=== PATIENT | male | born 1975 | race Caucasian/White ===

== ENCOUNTER 2022-06-01 07:02 | Outpatient (CLI) | payer OTHER, SELFPAY ==
--- NOTE | 2022-06-01 07:15 | MR_ITS ---
[facility] [address] [facility] [address] Phone:?[phone] Fax:?[phone] Referring Physician Information: Colin Mobley M.D. [address] [place] [place] [address] Phone:?[phone] Fax:?[phone] Patient:?Hawk Page D.O.B:?1975 Sex:?Male Phone:?[phone] [facility] MRN:?[id number] Exam Date:?06/01/2022 ? EXAM: MRI OF THE LUMBAR SPINE WITHOUT CONTRAST CLINICAL INFORMATION: Low back and bilateral leg pain. TECHNICAL INFORMATION: Sagittal fast spin-echo T2-weighted, T1-weighted, STIR as well as axial fast spin-echo T1 and T2-weighted images of the lumbar spine were obtained on a 1.5 [employer] MRI scanner.?SEDATION:?None.?CONTRAST:?None. INTERPRETATION: No comparison. Straightened lumbar lordosis. No acute fracture or spondylolysis. Conus is normal and terminates at L1. Imaged upper sacrum and paraspinal soft tissue structures are unremarkable save for incidental bilateral renal cysts. Disc desiccation and annular bulging are demonstrated at L4-5 and L3-4 with mild isolated annular bulging at L5-S1. Disc space narrowing is mild at L5-S1 and L4- 5. L5-S1: No central stenosis or traversing neural compression. Facets are unremarkable, but there is mild bilateral chronic foraminal narrowing. L4-5: Cranially extending, 3 to 4 mm right paracentral disc extrusion with moderate central stenosis, moderate bilateral subarticular recess narrowing and subarticular encroachment upon the traversing bilateral L5 nerve roots. Mild bilateral facet hypertrophy with mild to moderate bilateral chronic foraminal narrowing. L3-4: No central stenosis or traversing neural compression. Mild bilateral facet hypertrophy with patent foramina. L2-3 through T12-L1: Normal posterior disc margins and facets. Patent foramina. CONCLUSION: Multilevel degenerative lumbar spondylosis with the following notable findings: 1. Cranially extending, 3-4 and right paracentral L4-5 disc extrusion with moderate central stenosis and subarticular encroachment upon the traversing bilateral L5 nerve roots. 2. No acute fracture or spondylolysis. 3. Chronic mild bilateral L5-S1 and mild to moderate bilateral L4-5 foraminal narrowing without ganglionic compression. SC Electronically signed on 06/01/2022 1:54:00 PM by Reynaldo Cordova M.D.
--- OUTSIDE RECORDS SUMMARY | 2022-06-01 07:42 | XMS_ITS | Encounter Summary ---
:1975 Author Organization [facility] Address [address] [place] [address] Care Team Providers Name Role Phone Unavailable Primary Care Provider Unavailable Reason for Referral Outpatient (Routine) - Closed Specialty Diagnoses / Procedures Referred By Contact Refer red To Contact Neurology Steffanie Schmidt M.D ., M.P.H. [facility] [address] [place] [phone] Referral ID Status Reason Start Date Expiration Date Visits Requ ested Visits Authorized [id number] Closed 04/02/2021 04/02/2022 1 1 Reason for Visit Reason Comments Seizures yearly follow up Outpatient (Routine) - Closed Specialty Diagnoses / Procedures Referred By Contact Refer red To Contact Neurology Steffanie Schmidt M.D ., M.P.H. [facility] [address] [place] [phone] Referral ID Status Reason Start Date Expiration Date Visits Requ ested Visits Authorized [id number] Closed 12/20/2019 12/19/2020 1 1 Encounter Details Date Type Department Care Team Description 04/02/2021 Office Visit Department of Steffanie Schmidt, Seizure (H CC) (Primary Neurology in [place], M.P.H. Dx) [address] [phone] Social History Tobacco Use Types Packs/Day Years Used Date Smoking Tobacco: Former Cigarettes 0.5 15 Star raymundo: 08/26/2004 Smokeless Tobacco: Former Chew Qu it: 06/28/2009 Comments: occ. once a month Alcohol Use Standard Drinks/Week Comments Yes 0 (1 standard drink = 0.6 oz pure alcoho l) Alcohol Habits Answer Date Recorded How often do you have a drink containing alcohol? 2-4 times a month 03/31/2021 How many drinks containing alcohol do you have on a 3 or 4 03/31/2021 typical day when you are drinking? How often do you have six or more drinks on one Less than mo nthly 03/31/2021 occasion? Social Isolation Answer Date Recorded In a typical week, how many times do you talk on Twice a wee k 03/31/2021 the phone with family, friends, or neighbors? How often do you get together with friends or Once a week 03/31/2021 relatives? How often do you attend jain or restoration 1 to 4 times per year 03/31/2021 services? Do you belong to any clubs or organizations such Yes 03/31/2021 as jain groups, unions, fraternal or athletic groups, or school groups? How often do you attend meetings of the clubs or 1 to 4 time s per year 03/31/2021 organizations you belong to? Are you now , , , 03/31/2021 , never or living with a partner? Physical Activity Answer Date Recorded On average, how many days per week do you engage in moderate to 2 days 03/31/2021 strenuous exercise (like walking fast, running, jogging, dancing, swimming, biking, or other activities that cause a light or heavy sweat)? On average, how many minutes do you engage in exercise at th is 40 min 03/31/2021 level? Stress Answer Date Recorded Do you feel stress - tense, restless, nervous, or To some ex tent 03/31/2021 anxious, or unable to sleep at night because your mind is troubled all the time - these days? Financial Resource Strain Answer Date Recorded How hard is it for you to pay for the very basics like Not h rob at all 03/31/2021 food, housing, medical care, and heating? Food Insecurity Answer Date Recorded Within the past 12 months, you worried that your food would Never true 03/31/2021 run out before you got money to buy more. Within the past 12 months, the food you bought just didn't N ever true 03/31/2021 last and you didn't have money to get more. Transportation Needs Answer Date Recorded In the past 12 months, has lack of transportation kept you f rom No 03/31/2021 medical appointments or from getting medications? In the past 12 months, has lack of transportation kept you f rom No 03/31/2021 meetings, work, or getting things needed for daily living? Housing Stability Answer Date Recorded In the last 12 months, was there a time when you were not ab le No 03/31/2021 to pay the mortgage or rent on time? In the last 12 months, how many places have you lived? 1 03/31/2021 In the last 12 months, was there a time when you did not hav e a No 03/31/[address] or slept in a custodial (including now)? Education Answer Date Recorded What is the highest level of school you have Some college, n o degree 12/18/2019 completed or the highest degree you have received? Sex Assigned at Date Recorded Male 01/06/2018 10:28 AM CDT documented as of this encounter Last Filed Vital Signs Vital Sign Reading Time Taken Comments Blood Pressure 116/73 04/02/2021 3:21 PM CDT Pulse 89 04/02/2021 3:21 PM CDT Temperature - - Respiratory Rate - - Oxygen Saturation - - Inhaled Oxygen Concentration - - Weight 102 kg (225 lb 1.4 oz) 04/02/2021 3:21 PM CDT Height - - Body Mass Index 32.59 01/10/2018 12:40 PM CDT documented in this encounter Progress Notes Steffanie Schmidt M.D., M.P.H. - 04/02/2021 3:45 PM CDT SUBJECTIVE CHIEF COMPLAINT / REASON FOR VISIT Hawk Page is a 46 y.o. male who presents for evaluation of Seizures (yearly follow up). HISTORY OF PRESENT ILLNESS This patient previously diagnosed with epilepsy by my colleague Dr. Cook, remained seizure-free on lamotrigine monotherapy. 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 I have done so and copied it be scanned into the chart and given him the original. We will affects the copy informed. He has not had any I am a side effects from the medicine nor has he had the new symptoms of dizziness or balance problems. He does have a light sensitivity but he does not have gay diffusely and I take it that that is unrelated to the lamotrigine. He has to keep the his skin shielded from the sunlight now. Past Medical History: Diagnosis Date ??? Anxiety Generalized Disorder 2003 ??? Concussion Loss Of Consciousness Unspecified Duration Initial 2003 ??? Eczema 2003 ??? Gallbladder Disorder 2000 ??? Gastroesophageal Reflux Disease NOS 1999 ??? Headache Unspecified 2003 ??? Irritable Bowel Syndrome Without Diarrhea 2004 ??? Migraine Headache 2003 ??? Seizure (HCC) 2004 ??? Sleep Apnea 2005 ??? Stone Kidney 2013 Past Surgical History: Procedure Laterality Date ??? GALLBLADDER SURGERY 2000 MEDICATIONS: Current Outpatient Medications: ??? cetirizine (ZyrTEC) 10 mg tablet, 10 mg., Disp: , Rfl: ??? cyclobenzaprine (FLEXERIL) 10 mg tablet, Take 10 mg by mouth daily as needed., Disp: , Rfl: ??? hydrOXYchloroQUINE (PLAQUENIL) 200 mg tablet, Take 200 mg by mouth 2 (two) times a day., Disp: ,Rfl: ??? lamoTRIgine (LaMICtal) 150 mg tablet, Take 1 tablet (150 mg total) by mouth 2 (two) times a day., Disp: 180 tablet, Rfl: 3 ALLERGY: No Known Allergies No family history on file. Social History Socioeconomic History ??? Marital status: Single Spouse name: Not on file ??? Number of children: Not on file ??? Years of education: Not on file ??? Highest education level: Some college, no degree Occupational History ??? Not on file Tobacco Use ??? Smoking status: Former Smoker Packs/day: 0.50 Years: 15.00 Pack years: 7.50 Types: Cigarettes Start date: 08/26/2004 ??? Smokeless tobacco: Former User Types: Chew Quit date: 06/28/2009 ??? Tobacco comment: occ. once a month Substance and Sexual Activity ??? Alcohol use: Yes Types: 2 Standard drinks or equivalent per week ??? Drug use: No ??? Sexual activity: Yes Partners: Female control/protection: I.U.D., None Other Topics Concern ??? Not on file Social History Narrative ??? Not on file Social Determinants of Health Financial Resource Strain: Low Risk ??? Difficulty of Paying Living Expenses: Not hard at all Food Insecurity: No Food Insecurity ??? Worried About Running Out of Food in the Last Year: Never true ??? Ran Out of Food in the Last Year: Never true Transportation Needs: No Transportation Needs ??? Lack of Transportation (Medical): No ??? Lack of Transportation (Non-Medical): No Physical Activity: Insufficiently Active ??? Days of Exercise per Week: 2 days ??? Minutes of Exercise per Session: 40 min Stress: Stress Concern Present ??? Feeling of Stress : To some extent Social Connections: Socially Integrated ??? Frequency of Communication with Friends and Family: Twice a week ??? Frequency of Social Gatherings with Friends and Family: Once a week ??? Attends Latter Day Services: 1 to 4 times per year ??? Active Member of Clubs or Organizations: Yes ??? Attends Club or Organization Meetings: 1 to 4 times per year ??? Marital Status: Intimate Partner Violence: ??? Fear of Current or Ex-Partner: ??? Emotionally Abused: ??? Physically Abused: ??? Sexually Abused: @ OBJECTIVE Vitals: 04/02/21 1521 BP: 116/73 BP Location: Left arm Patient Position: Sitting Cuff Size: Large Pulse: 89 Weight: 102 kg PHYSICAL EXAM COGNITION: Alert and oriented x 4. CRANIAL NERVES: dry cure worker II-XII intact and symmetric. MOTOR: Full strength throughout the upper and lower extremities bilaterally both proximally and distally. Normal tone. No pronator drift. No tremor. REFLEXES: Normal and symmetric at the biceps, triceps, brachioradialis, knees, and ankles. SENSORY: normal sensation to touch CEREBELLAR: ARMs-normal GAIT: Normal Romberg test is negative Impression: Encounter Diagnoses Name Primary? Seizure (HCC) Yes Patient with history of seizures remains event free now for another year. The last note event was October 10, 2017. 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 I will plan to see himin a year or as needed. I personally spent 15 minutes in care of the patient today. Time includes both non face to face and face to face patient care. Steffanie Schmidt M.D., M.P.H. documented in this encounter Plan of Treatment Scheduled Referrals Name Type Priority Associated Diagnoses Order [facility] Neu[facility] office Outpatient Referral Routine Expe cted: visit (clinic) 04/02/2022 (Approximate), Expires: 04/02/2024 documented as of this encounter Visit Diagnoses Diagnosis Seizure (HCC) - Primary documented in this encounter
--- OUTSIDE RECORDS SUMMARY | 2022-06-01 07:42 | XMS_ITS | Encounter Summary ---
:1975 Author Organization [facility] Address [address] [place] [address] Care Team Providers Name Role Phone Unavailable Primary Care Provider Unavailable Reason for Visit Reason Comments DMV form Encounter Details Date Type Department Care Team Description 04/03/2021 Clinical Communication Department of Neurology Steffanie Schmidt, DMV form in [facility] fabiola Slater, M.P.H. [address] [place] [address] [address] [place] [phone] Social History Tobacco Use Types Packs/Day Years [...] 03/31/2021 relatives? How often do you attend orthodox or caodaism 1 to 4 times per year 03/31/2021 services? Do you belong to any clubs or organizations such Yes 03/31/2021 as orthodox groups, unions, fraternal or athletic groups, or [...] place to sleep or slept in a group home (including now)? Education Answer Date Recorded What is the highest level of school you have Some college, n o degree 12/18/2019 completed or the highest degree you have received? Sex Assigned at Date Recorded Male 01/06/2018 10:28 AM CDT documented as of this encounter Miscellaneous Notes Telephone Encounter - Nga Muñoz L.P.N. - 04/03/2021 7:59 AM CDT DMV Form faxed to [phone]. documented in this encounter Plan of Treatment Not on filedocumented as of this encounter Visit Diagnoses Not on filedocumented in this encounter
--- OUTSIDE RECORDS SUMMARY | 2022-06-01 07:42 | XMS_ITS | Encounter Summary ---
:1975 Author Organization [facility] Address [address] [place] [address] Care Team Providers Name Role Phone Unavailable Primary Care Provider Unavailable Reason for Visit MRI/CAT/PET Scan (Routine) - Closed Specialty Diagnoses / Procedures Referred By Contact Refer red To Contact Radiology Diagnoses Seizure (HCC) Magdiel Cook M.D., [facility] Procedures MR Brain without IV Contrast MR Brain without and with IV Contrast GA MRI BRAIN WO/W CNTRST HC MRI BRAIN WO/W CNTRST GA MRI BRAIN WO CNTRST HC MRI BRAIN WO CNTRST Ph.D. [address] [place] [address] [phone] Referral ID Status Reason Start Date Expiration Date Visits Requ ested Visits Authorized [id number] Closed 01/10/2018 01/10/2019 1 1 Encounter Details Date Type Department Care Team Description 01/11/2018 Hospital Encounter Department of Magdiel Cook S eizure ([facility]) Radiology, Edward Slater, Ph.D. [place], in [address] [place] [phone] [place], [place] [phone] (Wo rk) [id number] [phone] Social History Tobacco Use Types Packs/Day Years Used Date Smoking Tobacco: Every Day Cigarettes 0.5 15 S tarted: 08/26/2004; Last attempted to qu it: 01/06/2018 Smokeless Tobacco: Former Chew Qu it: 06/28/2009 Alcohol Use Standard Drinks/Week Comments Yes 0 [...] 03/31/2021 relatives? How often do you attend holiness or rastafari 1 to 4 times per year 03/31/2021 services? Do you belong to any clubs or organizations such Yes 03/31/2021 as holiness groups, unions, fraternal or athletic groups, or [...] place to sleep or slept in a senior care (including now)? Sex Assigned at Date Recorded Male 01/06/2018 10:28 AM CDT documented as of this encounter Last Filed Vital Signs Vital Sign Reading Time Taken Comments Blood Pressure - - Pulse - - Temperature 37 ??C (98.6 ??F) 01/11/2018 9:56 AM CDT Respiratory Rate - - Oxygen Saturation - - Inhaled Oxygen Concentration - - Weight 90.7 kg (200 lb) 01/11/2018 8:28 AM CDT Height - - Body Mass Index 28.96 01/10/2018 12:40 PM CDT documented in this encounter Medications at Time of Discharge Medication Sig Dispensed Refills Start Date End Date cetirizine (ZyrTEC) 10 mg 10 mg. 0 03/11/2012 tablet cyclobenzaprine (FLEXERIL) Take 10 mg by 0 10 mg tablet mouth daily as needed. lamoTRIgine (LaMICtal) 150 150 mg 2 (two) 0 10/1110/27/2018 mg tablet times a day. documented as of this encounter Nursing Notes Camille Gillespie R.N. - 01/11/2018 8:19 AM CDT Patient is scheduled for an MRI on a 7T MRI. Verified patient does not have dental retainer, brace, wire, denture, etc. Patient is scheduled for an MRI on a 7T MRI. Patient has tooth fillings. Notifiedlead technologist to follow-up with Radiologist. Patient is scheduled for an MRI on a 7T MRI. Verified patient does not have colored contact lens. Patient is scheduled for an MRI on a 7T MRI. Verified patient does not have metallic threads in clothes. Patient is scheduled for an MRI on a 7T MRI. Patient has tattoos or permanent eyeliner. Notified lead technologist to follow-up with Radiologist. Patient is scheduled for an MRI on a 7T MRI. Verified patient does not have piercings or other metallic jewelry that cannot be removed. Patient is scheduled for an MRI on a 7T MRI. Patient has seizures or motion disorders. Notified lead technologist to follow-up with Radiologist. Patient's current temperature is 37C. documented in this encounter Plan of Treatment Not on filedocumented as of this encounter Procedures Procedure Name Priority Date/Time Associated Comments Diagnosis MR BRAIN WITHOUT RAD - Routine 01/11/2018 9:48 Seizure (HCC) Result s for this IV CONTRAST (most inpatients AM CDT procedure a re in and all the results outpatients) section. documented in this encounter Results MR Brain without IV Contrast (01/11/2018 9:48 AM CDT) Anatomical Region Laterality Modality Head, Brain, Neuroradiology RST LOS N/A Magn etic Resonance Specimen (Source) Anatomical Collection Method Collection Time Re ceived Time Location / / Volume Laterality 01/11/2018 10:45 AM CDT Impressions 01/11/2018 10:55 AM CDT IMPRESSION: 1. Findings suspicious for a small, mild ly atrophic right hippocampus. 2. Indeterminate changes involving the l eft hippocampal head. Narrative 01/11/2018 10:55 AM CDT EXAM: MR BRAIN WITHOUT IV CONTRAST. The examination was performed at 7 T. COMPARISON: None FINDINGS: Some of pulse sequences were d egraded by motion despite repeating, the patient was unable to stay awake during portions of the examination. Hippocampal asymmetry is felt to reflect a smaller a mount mildly atrophic right hippocampus, particularly the hippocampal body and ta il, with associated atrophy of the right fornix. Could not exclude a mild amount of focal atrophy of the left hippocampal head however. No abnormal hippocampal si gnal. Remainder negative. Procedure Note Paco Waldron M.D. - 01/11/2018Format ting of this note might be different from the original. EXAM: MR BRAIN WITHOUT IV CONTRAST. The examination was performed at 7 T. COMPARISON: None FINDINGS: Some of pulse sequences were d egraded by motion despite repeating, the patient was unable to stay awake during portions of the examination. Hippocampal asymmetry is felt to reflect a smaller a mount mildly atrophic right hippocampus, particularly the hippocampal body and ta il, with associated atrophy of the right fornix. Could not exclude a mild amount of focal atrophy of the left hippocampal head however. No abnormal hippocampal si gnal. Remainder negative. IMPRESSION: 1. Findings suspicious for a small, mild ly atrophic right hippocampus. 2. Indeterminate changes involving the l eft hippocampal head. Magdiel Cook M.D., Ph.D. IMG MRI PROCEDURES documented in this encounter Visit Diagnoses Diagnosis Seizure (HCC) documented in this encounter
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
--- OUTSIDE RECORDS SUMMARY | 2022-06-01 07:42 | XMS_ITS | Clinical Summary ---
:1975 Author Organization [facility] Address [address] [place] [address] Care Team Providers Name Role Phone Unavailable Primary Care Provider Unavailable Source Comments Patient records contain information from all sites at [facility]. For routine questions regarding patient records, call [phone] during business hours, M-F 8:00 AM - 5:00 PM Central Time. Record requests for emergency care only can be directed to [phone] at any time.[facility] Allergies No known active allergies Medications Medication Sig Dispensed Refills Start Date End Date Status cetirizine (ZyrTEC) 10 mg 10 mg. 0 03/11/2012 Active tablet cyclobenzaprine (FLEXERIL) Take 10 mg by 0 Active 10 mg tablet mouth daily as needed. hydrOXYchloroQUINE Take 200 mg 0 12/24/2020 Active (PLAQUENIL) 200 mg tablet by mouth 2 (two) times a day. lamoTRIgine (LaMICtaL) 150 TAKE 1 180 tablet 3 04/08/2022 Active mg tablet TABLET(150 MG) BY MOUTH TWICE DAILY Active Problems Problem Noted Date Seizure 02/26/2017 Encounters Date Type Specialty Care Team Description 04/08/2022 Refill Neurology Steffanie Schmidt M.D., M.P.H . Med Refill from Last 3 Months Social History Tobacco Use Types Packs/Day Years [...] 03/31/2021 relatives? How often do you attend scientologist or baptism 1 to 4 times per year 03/31/2021 services? Do you belong to any clubs or organizations such Yes 03/31/2021 as scientologist groups, unions, fraternal or athletic groups, or [...] place to sleep or slept in a [facility] (including now)? Education Answer Date Recorded What is the highest level of school you have Some college, n o degree 12/18/2019 completed or the highest degree you have received? Sex Assigned at Date Recorded Male 01/06/2018 10:28 AM CDT Last Filed Vital Signs Vital Sign Reading Time Taken Comments Blood Pressure 116/73 04/02/2021 3:21 PM CDT Pulse 89 04/02/2021 3:21 PM CDT Temperature 37.1 ??C (98.8 ??F) 12/20/2019 11:04 AM CDT Respiratory Rate - - Oxygen Saturation - - Inhaled Oxygen Concentration - - Weight 102 kg (225 lb 1.4 oz) 04/02/2021 3:21 PM CDT Height 177 cm (5' 9.69) 01/10/2018 12:40 PM CDT Body Mass Index 32.59 01/10/2018 12:40 PM CDT Plan of Treatment Health Maintenance Due Date Last Done Comments CT Colonography 1975 Cologuard 1975 Colonoscopy 1975 Colorectal Cancer Screening 1975 FIT 1975 HIV Screening 1975 Hepatitis C Screening 1975 Lipid (Cholesterol) 1975 Screening COVID-19 Vaccine (#1) 1975 Fasting Glucose for 2020 02/17/2017 Diabetes Screening Depression Screening 06/28/2021 (Annual PHQ-2) Influenza Vaccine (#1) 2022 06/26/2020, 03/29/2019, 04/03/2017, Additional history exists DTaP,Tdap,and Td Vaccines 11/30/2030 11/30/2020, 04/28/2012 , (5 - Td or Tdap) 02/26/2011, Additional history exists Hepatitis B Vaccines Completed 10/17/2008, 03/30/2008, 05/28/2007 Pneumococcal vaccine (0-64 Aged Out No lo nger eligible years) based on patient 's age to complete this topic Insurance Payer Benefit Plan Subscriber ID Effective Dates Phone Address Type / Group [facility] [id number] 2017-Byron [phone] [facility] T Indemnity t [address] [facility] [address] [place] [id number]
--- OUTSIDE RECORDS SUMMARY | 2022-06-01 07:42 | XMS_ITS | Encounter Summary ---
:[address] [facility] Address [address] [place] [address] Care Team Providers Name Role Phone Unavailable Primary Care Provider Unavailable Reason for Visit Reason Onset Date Comments EMU 11/18/2017 Encounter Details Date Type Department Care Team Description 11/18/2017 Clinical Communication Department of Colin Case Neurology latonya Schneider M.D. [place], [place] [address] [facility] [address] [place] [phone] Social History Tobacco Use Types Packs/Day Years Used Date Smoking Tobacco: Never Assessed Alcohol Habits Answer Date Recorded How often [...] 03/31/2021 relatives? How often do you attend jainism or cheondoism 1 to 4 times per year 03/31/2021 services? Do you belong to any clubs or organizations such Yes 03/31/2021 as jainism groups, unions, fraternal or athletic groups, or [...] place to sleep or slept in a skilled nursing (including now)? Sex Assigned at Date Recorded Male 01/06/2018 10:28 AM CDT documented as of this encounter Miscellaneous Notes Telephone Encounter - DawitAmritaRosalee M - 11/18/2017 1:[address] Case, Can you please advise if an EMU is needed? [facility] Local Neurologist referring: Dr. Roxanne Schmidt - [facility] Neurologist - 5-23-18 Evaluated at another epilepsy center: Neurology Dept [place] Dx of Seizures: Grand mal seizures Devices: No Patient has been having seizures/spells for: January 2017 Frequency: random - no pattern - roughly months apart // Last two seizures/spells were: September 2017 and October 2017 Visit goals: [facility] monitoring - control - confirm diagnosis Seizure medication: lamictal / topiramate Past medication: one Previous testing: EEG / MRI - January 2017 Headaches are a bigger problem than seizures: No documented in this encounter Plan of Treatment Not on filedocumented as of this encounter Visit Diagnoses Not on filedocumented in this encounter
--- OUTSIDE RECORDS SUMMARY | 2022-06-01 07:42 | XMS_ITS | Encounter Summary ---
:1975 Author Organization [facility] Address [address] [place] [address] Care Team Providers Name Role Phone Unavailable Primary Care Provider Unavailable Reason for Referral Outpatient (Routine) - Closed Specialty Diagnoses / Procedures Referred By Contact Refer red To Contact Neurology Diagnoses Seizure (HCC) Steffanie Schmidt M.D., M.P.H. [facility] [address] [place] [phone] Referral ID Status Reason Start Date Expiration Date Visits Requ ested Visits Authorized [id number] Closed 11/17/2017 05/16/2018 1 1 Encounter Details Date Type Department Care Team Description 11/17/2017 [facility] Steffanie Schmidt (HCC) AND CLINICS Bryon Oliveira, (Primary Dx) [address] [facility] [place] [address] [phone] [place] [phone] Social History Tobacco Use Types Packs/Day Years [...] 03/31/2021 relatives? How often do you attend pentecostalism or cheondoism 1 to 4 times per year 03/31/2021 services? Do you belong to any clubs or organizations such Yes 03/31/2021 as pentecostalism groups, unions, fraternal or athletic groups, or [...] slept in a group home (including now)? Sex Assigned at Date Recorded Male 01/06/2018 10:28 AM CDT documented as of this encounter Plan of Treatment Scheduled Referrals Name Type Priority Associated Diagnoses Order S [facility] Neurology Referral Outpatient Referral Routine Seizure (HCC) E xpected: 11/17/2017 (Approximate), Expires: 11/17/2020 documented as of this encounter Visit Diagnoses Diagnosis Seizure (HCC) - Primary documented in this encounter
--- OUTSIDE RECORDS SUMMARY | 2022-06-01 07:42 | XMS_ITS | Encounter Summary ---
:1975 Author Organization [facility] Address [address] [place] [address] Care Team Providers Name Role Phone Unavailable Primary Care Provider Unavailable Encounter Details Date Type Department Care Team Description 11/09/2018 Abstract [facility] LISSETH Douglass ea Provider, Historical [address] [place] [address] Social History Tobacco Use Types Packs/Day Years [...] 03/31/2021 relatives? How often do you attend sikh or anglican 1 to 4 times per year 03/31/2021 services? Do you belong to any clubs or organizations such Yes 03/31/2021 as sikh groups, unions, fraternal or athletic groups, or [...] place to sleep or slept in a alf (including now)? Sex Assigned at Date Recorded Male 01/06/2018 10:28 AM CDT documented as of this encounter Plan of Treatment Not on filedocumented as of this encounter Procedures Procedure Name Priority Date/Time Associated Diagnosis Comme nts HEMOGLOBIN A1C, B Routine 02/17/2017 Results fo r this procedure are in the resu lts section. documented in this encounter Results Hemoglobin A1c (02/17/2017) P athologist Signature Hemoglobin A1c, 5.3 4.0 - 6.0 EXTERNAL B NON-INTERFACED LAB Specimen (Source) Anatomical Location Collection Method / Collectio n Time Received Time / Laterality Volume Blood (Blood, Venous) Ordering Provider External M.D. LAB BLOOD ADD-ON Performing Organization Address City/State/ZIP Code Phon e Number EXTERNAL NON-INTERFACED LAB [address] [place], [place] [address] documented in this encounter Visit Diagnoses Not on filedocumented in this encounter
--- OUTSIDE RECORDS SUMMARY | 2022-06-01 07:42 | XMS_ITS | Encounter Summary ---
:1975 Author Organization [facility] Address [address] [place] [address] Care Team Providers Name Role Phone Unavailable Primary Care Provider Unavailable Reason for Visit Reason Comments Med Refill Encounter Details Date Type Department Care Team Description 04/08/2022 Refill Department of Neurology in Steffanie Schmidt M.D., Med Refill [place], [place] M.P.H. [address] [facility] [address] [place] [address] [place] [address] (Wo rk) Social History Tobacco Use Types Packs/Day Years [...] 03/31/2021 relatives? How often do you attend taoist or rastafarian 1 to 4 times per year 03/31/2021 services? Do you belong to any clubs or organizations such Yes 03/31/2021 as taoist groups, unions, fraternal or athletic groups, or [...] place to sleep or slept in a long-term (including now)? Education Answer Date Recorded What [...]
--- OUTSIDE RECORDS SUMMARY | 2022-06-01 07:42 | XMS_ITS | Encounter Summary ---
:1975 Author Organization [facility] Address [address] [place] [address] Care Team Providers Name Role Phone Unavailable Primary Care Provider Unavailable Encounter Details Date Type Department Care Team Description 11/23/2017 Abstract DATA ABSTRACTION Provider, Historical Social History Tobacco Use Types Packs/Day Years [...] 03/31/2021 relatives? How often do you attend advent or presybeterian 1 to 4 times per year 03/31/2021 services? Do you belong to any clubs or organizations such Yes 03/31/2021 as advent groups, unions, fraternal or athletic groups, or [...] place to sleep or slept in a [facility] (including now)? Sex Assigned at Date Recorded Male 01/06/2018 10:28 AM CDT documented as of this encounter Plan of Treatment Not on filedocumented as of this encounter Visit Diagnoses Not on filedocumented in this encounter
--- OUTSIDE RECORDS SUMMARY | 2022-06-01 07:42 | XMS_ITS | Encounter Summary ---
:1975 Author Organization [facility] Address [address] [place] [address] Care Team Providers Name Role Phone Unavailable Primary Care Provider Unavailable Reason for Referral Outpatient (Routine) - Closed Specialty Diagnoses / Procedures Referred By Contact Refer red To Contact Neurology Steffanie Schmidt M.D ., M.P.H. [facility] [address] [place] [address] Referral ID Status Reason Start Date Expiration Date Visits Requ ested Visits Authorized [id number] Closed 10/27/2018 10/27/2019 1 1 Reason for Visit Reason Comments Seizures Has been seen in [place] Appointment Request (Routine) - Closed Specialty Diagnoses / Procedures Referred By Contact Refer red To Contact Family Medicine Referral ID Status Reason Start Date Expiration Date Visits Requ ested Visits Authorized [id number] Closed 04/26/2018 04/26/2019 1 Encounter Details Date Type Department Care Team Description 10/27/2018 Office Visit Department of Steffanie Schmidt, Seizure (H CC) (Primary Neurology in [place], M.P.H. Dx) [place], [place] [address] [phone] [phone] Social History Tobacco Use Types Packs/Day Years [...] 03/31/2021 relatives? How often do you attend latter day or rastafarian 1 to 4 times per year 03/31/2021 services? Do you belong to any clubs or organizations such Yes 03/31/2021 as latter day groups, unions, fraternal or athletic groups, or [...] place to sleep or slept in a residential (including now)? Sex Assigned at Date Recorded Male 01/06/2018 10:28 AM CDT documented as of this encounter Last Filed Vital Signs Vital Sign Reading Time Taken Comments Blood Pressure 130/82 10/27/2018 10:45 AM CDT Pulse 80 10/27/2018 10:45 AM CDT Temperature - - Respiratory Rate - - Oxygen Saturation - - Inhaled Oxygen Concentration - - Weight 99.9 kg (220 lb 3.8 oz) 10/27/2018 10:45 AM CDT Height - - Body Mass Index 31.89 01/10/2018 12:40 PM CDT documented in this encounter Progress Notes Steffanie Schmidt M.D., M.P.H. - 10/27/2018 10:45 AM CDT SUBJECTIVE CHIEF COMPLAINT / REASON FOR VISIT Hawk Page is a 43 y.o. male who presents for evaluation of Seizures (Has been seen in [place]). HISTORY OF PRESENT ILLNESS Very pleasant 43-year-old gentleman is known to me for history of seizures, some of them with sensations and others with convulsions. I referred him to [place] for evaluation by a epilepsy doctor to see he might be a candidate for epilepsy monitoring unit. Dr. Donnelly saw the patient and concluded that his seizures were too infrequent to warrant epilepsy monitoring but did get an EEG which was normal. He did get a seven T MRI which showed small mildly atrophic right hippocampus with indeterminate changes in the left hippocampal head. EXAM: MR BRAIN WITHOUT IV CONTRAST. The examination was performed at 7 T. COMPARISON: None FINDINGS: Some of pulse sequences were degraded by motion despite repeating, the patient was unable to stay awake during portions of the examination. Hippocampal asymmetry is felt to reflect a smaller amount mildly atrophic right hippocampus, particularly the hippocampal body and tail, with associated atrophy of the right fornix. Could not exclude a mild amount of focal atrophy of the left hippocampal head however. No abnormal hippocampal signal. Remainder negative. IMPRESSION: 1. Findings suspicious for a small, mildly atrophic right hippocampus. 2. Indeterminate changes involving the left hippocampal head. Epilepsy Type: Unknown Epilepsy Syndrome: unknown Etiology: [...] (Routine EEG, continuous EEG): EEG here at [facility] normal The time of today's visit he has been seizure-free for over a year since September of 2017 on lamotrigine 150 mg p.o. b.i.d.. He is not having any side effects. 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 Past Medical History: Diagnosis Date ??? Anxiety Generalized Disorder 2004 ??? Concussion Loss Of Consciousness Unspecified Duration Initial 2003 ??? Eczema 2004 ??? Gallbladder Disorder 2000 ??? Gastroesophageal Reflux Disease NOS 2000 ??? Headache 2004 ??? Irritable Bowel Syndrome Without Diarrhea 2005 ??? Migraine Headache 2004 ??? Seizure (HCC) 2004 ??? Sleep Apnea 2004 ??? Stone Kidney 2013 Past Surgical History: Procedure Laterality Date ??? GALLBLADDER SURGERY 2001 MEDICATIONS: Current Outpatient Prescriptions: ??? cetirizine (ZyrTEC) 10 mg tablet, 10 mg., Disp: , Rfl: ??? cyclobenzaprine (FLEXERIL) 10 mg tablet, Take 10 mg by mouth daily as needed., Disp: , Rfl: ??? lamoTRIgine (LaMICtal) 150 mg tablet, Take 1 tablet (150 mg total) by mouth 2 (two) times a day., Disp: 180 tablet, Rfl: 3 ALLERGY: No Known Allergies No family history on file. Social History Social History ??? Marital status: Single Spouse name: N/A ??? Number of children: N/A ??? Years of education: N/A Occupational History ??? Not on file. Social History Main Topics ??? Smoking status: Former Smoker Packs/day: 0.50 Years: 15.00 Types: Cigarettes Start date: 08/26/2004 ??? Smokeless tobacco: Former User Types: Chew Quit date: 06/28/2009 Comment: occ. once a month ??? Alcohol use Yes 2 Standard drinks or equivalent per week ??? Drug use: No ??? Sexual activity: Yes Partners: Female control/ protection: IUD, None Other Topics Concern ??? Not on file Social History Narrative ??? No narrative on file OBJECTIVE Vitals: 10/27/18 1045 BP: 130/82 BP Location: Left arm Patient Position: Sitting Cuff Size: Regular Pulse: 80 Weight: 99.9 kg PHYSICAL EXAM COGNITION: Alert and oriented x 4. 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 MOTOR: Full strength throughout the upper and lower extremities bilaterally both proximally and distally. Normal tone. No pronator drift. No tremor. REFLEXES: Normal and symmetric at the biceps, triceps, brachioradialis, knees, and ankles. SENSORY: normal sensation to touch CEREBELLAR: ARMs-normal GAIT: Normal Impression: Encounter Diagnoses Name Primary? Seizure (HCC) Yes Patient has been seizure-free for over a year so we will not make any changes to his therapy. His base line EEG is normal and his MRI shows hippocampal changes as described above. Worried have a breakthrough seizure I would probably increase his lamotrigine to 200 mg b.i.d.. A total time with the patient today was 30 minutes and more than half was counseling. Steffanie Schmidt M.D., M.P.H. Safety in epilepsy was discussed and the importance of avoiding activities, such as driving if her he has recurrence of seizure activity. Automated voice recognition by [employer] software was used to dictate part of this document.??While this note has been reviewed, some errors may still persist. ??Please contact the author withany questions. documented in this encounter Plan of Treatment Scheduled Referrals Name Type Priority Associated Diagnoses Order S [facility] Neurology office Outpatient Referral Routine Expe cted: visit (clinic) 10/28/2019 (Approximate), Expires: 10/27/2021 documented as of this encounter Visit Diagnoses Diagnosis Seizure (HCC) - Primary documented in this encounter
--- OUTSIDE RECORDS SUMMARY | 2022-06-01 07:42 | XMS_ITS | Encounter Summary ---
:1975 Author Organization [facility] Address [address] [place] [address] Care Team Providers Name Role Phone Unavailable Primary Care Provider Unavailable Reason for Referral Outpatient (Routine) - Closed Specialty Diagnoses / Procedures Referred By Contact Refer red To Contact Neurology Steffanie Schmidt M.D ., M.P.H. [facility] [address] [phone] Referral ID Status Reason Start Date Expiration Date Visits Requ ested Visits Authorized [id number] Closed 12/20/2019 12/19/2020 1 1 Reason for Visit Reason Comments Seizures Last seen 10/27/18 Outpatient (Routine) - Closed Specialty Diagnoses / Procedures Referred By Contact Refer red To Contact Neurology Steffanie Schmidt M.D ., M.P.H. [facility] [address] [place] [phone] Referral ID Status Reason Start Date Expiration Date Visits Requ ested Visits Authorized [id number] Closed 10/27/2018 10/27/2019 1 1 Encounter Details Date Type Department Care Team Description 12/20/2019 Office Visit Department of Steffanie Schmidt, Seizure (H CC) (Primary Neurology in [place], M.P.H. Dx) [address] [phone] Social History Tobacco Use Types Packs/Day Years [...] 03/31/2021 relatives? How often do you attend christianity or caodaism 1 to 4 times per year 03/31/2021 services? Do you belong to any clubs or organizations such Yes 03/31/2021 as christianity groups, unions, fraternal or athletic groups, or [...] place to sleep or slept in a fci (including now)? Education Answer Date Recorded What is the highest level of school you have Some college, n o degree 12/18/2019 completed or the highest degree you have received? Sex Assigned at Date Recorded Male 01/06/2018 10:28 AM CDT documented as of this encounter Last Filed Vital Signs Vital Sign Reading Time Taken Comments Blood Pressure 123/75 12/20/2019 11:04 AM CDT Pulse 80 12/20/2019 11:04 AM CDT Temperature 37.1 ??C (98.8 ??F) 12/20/2019 11:04 AM CDT Respiratory Rate - - Oxygen Saturation - - Inhaled Oxygen Concentration - - Weight 97.4 kg (214 lb 11.7 oz) 12/20/2019 11:04 AM CDT Height - - Body Mass Index 31.09 01/10/2018 12:40 PM CDT documented in this encounter Progress Notes Steffanie Schmidt M.D., M.P.H. - 12/20/2019 11:30 AM CDT SUBJECTIVE CHIEF COMPLAINT / REASON FOR VISIT Hawk Page is a 44 y.o. male who presents for evaluation of Seizures (Last seen 10/27/18). HISTORY OF PRESENT ILLNESS Patient returns today for follow-up by himself. He reports no seizures. He is not having any side effects from the medicine. The only area of concern is that his says that sometimes he appears to be staring off more lost and thought. He has not had any known episodes of loss of consciousness but with her not being there arm unable to determine whether he has ever had any even brief moments of loss of consciousness. He isn't aware of any but said he will check with his in confirm that and that if he does have any. The time when he is appeared to be staring off and she is worried about lossof conscious that she confirms that he does respond her period I made it clear that even a brief lapse in consciousness would obviously put him at risk and so we would have to restrict his driving and we would want to increase his therapy. He verbalized understanding of that. He is currently working from home and anticipates doing that for some time period He denies any rashes, double vision or blurry vision. He does not have any problems with balance or gait. He reports that his mood is good. Neurological Disorders Depression Inventory for Epilepsy score is 11. Past Medical History: Diagnosis Date ??? Anxiety Generalized Disorder 2003 ??? Concussion Loss Of Consciousness Unspecified Duration Initial 2003 ??? Eczema 2003 ??? Gallbladder Disorder 2000 ??? Gastroesophageal Reflux Disease NOS 1999 ??? Headache 2004 ??? Irritable Bowel Syndrome Without Diarrhea 2004 [...] degree Occupational History ??? Not on file Social Needs ??? Financial resource strain: Not very hard ??? Food insecurity Worry: Never true Inability: Never true ??? Transportation needs Medical: No Non-medical: No Tobacco Use ??? Smoking status: Former Smoker Packs/day: 0.50 Years: 15.00 Pack years: 7.50 Types: Cigarettes Start date: 08/26/2004 ??? Smokeless tobacco: Former User Types: Chew Quit date: 06/28/2009 ??? Tobacco comment: occ. once a month Substance and Sexual Activity ??? Alcohol use: Yes Types: 2 Standard drinks or equivalent per week Frequency: 2-4 times a month Drinks per session: 3 or 4 Binge frequency: Less than monthly ??? Drug use: No ??? Sexual activity: Yes Partners: Female control/protection: I.U.D., None Lifestyle ??? Physical activity Days per week: 3 days Minutes per session: 30 min ??? Stress: To some extent Relationships ??? Social connections Talks on phone: More than three times a week Gets together: Once a week Attends caodaism service: More than 4 times per year Active member of club or organization: Yes Attends meetings of clubs or organizations: 1 to 4 times per year Relationship status: ??? Intimate partner violence Fear of current or ex partner: Not on file Emotionally abused: Not on file Physically abused: Not on file Forced sexual activity: Not on file Other Topics Concern ??? Not on file Social History Narrative ??? Not on file @ OBJECTIVE Vitals: 12/20/19 1104 BP: 123/75 BP Location: Left arm Patient Position: Sitting Cuff Size: Regular Pulse: 80 Temp: 37.1 ??C TempSrc: Temporal Weight: 97.4 kg PHYSICAL EXAM COGNITION: Alert and oriented x 4. CRANIAL NERVES: director surgical II-XII intact and symmetric. Does have a little bit of lateral gaze evoked nystagmus for about a 2nd. MOTOR: Full strength throughout the upper and lower extremities bilaterally both proximally and distally. Normal tone. No pronator drift. No tremor. REFLEXES: Normal and symmetric at the biceps, triceps, brachioradialis, knees, and ankles. SENSORY: normal sensation to touch CEREBELLAR: ARMs-normal GAIT: Normal Impression: Encounter Diagnoses Name Primary? Seizure (HCC) Yes For the time being were not going to make any changes to his therapy he will talk to his and confirmed that he does not have any loss of consciousness even briefly. And she will check with him if she ever thinks he is unresponsive. He is going to message me on the portal. Total time with the patient today was 20 minutes, more than half was counseling. Steffanie Schmidt M.D., M.P.H. documented in this encounter Plan of Treatment Scheduled Referrals Name Type Priority Associated Diagnoses Order S [facility] Neurology office Outpatient Referral Routine Expe cted: visit (clinic) 12/19/2020 (Approximate), Expires: 12/19/2022 documented as of this encounter Visit Diagnoses Diagnosis Seizure (HCC) - Primary documented in this encounter
--- OUTSIDE RECORDS SUMMARY | 2022-06-01 07:42 | XMS_ITS | Clinical Summary ---
:1975 Author Organization [facility] [place] [address] Care Team Providers Name Role Phone [facility] Primary Care Provider Allergies No known active allergies Medications Not on file Active Problems Not on file Social History Tobacco Use Types Packs/Day Years Used Date Never Assessed Sex Assigned at Date Recorded Not on file Last Filed Vital Signs Vital Sign Reading Time Taken Comments Blood Pressure 121/70 02/17/2017 6:42 PM CDT Pulse 71 02/17/2017 6:42 PM CDT Temperature 36.7 ??C (98.1 ??F) 02/17/2017 6:42 PM CDT Respiratory Rate 20 02/17/2017 6:42 PM CDT Oxygen Saturation 98% 02/17/2017 6:42 PM CDT Inhaled Oxygen Concentration - - Weight 88.5 kg (195 lb 3.2 oz) 02/17/2017 6:42 PM CDT Height 165.1 cm (5' 5) 02/17/2017 6:42 PM CDT Body Mass Index 32.48 02/17/2017 6:42 PM CDT Plan of Treatment Not on file Results Not on filefrom Last 3 Months Insurance Payer Benefit Plan / Subscriber ID Effective Dates Phone Addre ss Type Group [place] [id number] 2011-Present C/O PBA, [facility]/ [address] [place] [phone] Care Teams Make Up Editor Relationship Specialty Start Date End Date [facility] - General 02/17/17 [address] [place] [address]
--- OUTSIDE RECORDS SUMMARY | 2022-06-01 07:42 | XMS_ITS | Encounter Summary ---
:1975 Author Organization [facility] Address [address] [place] [address] Care Team Providers Name Role Phone Unavailable Primary Care Provider Unavailable Reason for Visit Reason Comments Med Refill Encounter Details Date Type Department Care Team Description 12/30/2020 Refill Department of Neurology in Steffanie Schmidt M.D., Med Refill [place], [place] M.P.H. [address] [facility] [address] [place] [address] [place] [address] (Wo rk) Social History Tobacco [...] 03/31/2021 relatives? How often do you attend druze or worship 1 to 4 times per year 03/31/2021 services? Do you belong to any clubs or organizations such Yes 03/31/2021 as druze groups, unions, fraternal or athletic groups, or [...]
--- OUTSIDE RECORDS SUMMARY | 2022-06-01 07:42 | XMS_ITS | Encounter Summary ---
:1975 Author Organization [facility] Address [address] [place] [address] Care Team Providers Name Role Phone Unavailable Primary Care Provider Unavailable Encounter Details Date Type Department Care Team Description 03/01/2019 Clinical Communication Department of Steffanie Santacruz, Medicine, Miriam Slater, M.P.H. [facility], in [address] [place], [place] [address] [facility] [address] [place] [address] [facility] [phone] Social History Tobacco Use Types Packs/Day Years [...] 03/31/2021 relatives? How often do you attend yazidi or mormon 1 to 4 times per year 03/31/2021 services? Do you belong to any clubs or organizations such Yes 03/31/2021 as yazidi groups, unions, fraternal or athletic groups, or [...] Telephone Encounter - Nga Muñoz L.P.N. - 03/15/2019 11:52 AM CDT Attempted to contact patient in regards to DMV forms. Message indicated that a detailed message could be left. Patient informed that forms have been completed and faxed to the V. At fax number [phone]. Any questions patient can return call at [phone]. Telephone Encounter - Nga Muñoz L.P.N. - 03/14/2019 8:17 AM CDT Contacted patient to let him know that paper work has been received and will be completed when is in the [place] location tomorrow 03/15/19. Telephone Encounter - Daphney Artis - 03/13/2019 9:58 AM CDT Patient calling back in and is wondering if this paperwork has been received. Please advise and callback at [phone] Telephone Encounter - Nga Muñoz L.P.N. - 03/01/2019 1:10 PM CDT SUBJECTIVE CHIEF COMPLAINT / REASON FOR CALL No chief complaint on file. Patient is requesting the following information: See message. 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 He would like an update regarding the status of his Department of Public [employer] paperwork that he needs Dr. Schmidt to complete. Current Can Nursing/Provider leave a detailed message: Yes Did the patient refuse triage through Nurse line? (for symptom based concerns): Action Needed: Please call patient back. Leave message if needed. Name of Medication (if relevant): documented in this encounter Plan of Treatment Not on filedocumented as of this encounter Visit Diagnoses Not on filedocumented in this encounter
== END 2022-06-01 07:03 | disposition home or self-care (01) ==
LOC: MRI 07:03
PROVIDERS: PCP Physician Assistant Medical; Visit Provider Family Medicine
DX: M54.50 Low back pain, unspecified (principal); M51.27 Other intervertebral disc displacement, lumbosacral region; M48.02 Spinal stenosis, cervical region; M79.604 Pain in right leg; M79.605 Pain in left leg
CPT/HCPCS: 72148

== ENCOUNTER 2022-06-19 07:54 | Outpatient (CLI) | payer OTHER, SELFPAY | END 2022-06-19 07:55 | disposition home or self-care (01) | LOC: INJ CL 07:55 | PROVIDERS: PCP Physician Assistant Medical; Visit Provider Family Medicine | DX: M54.16 Radiculopathy, lumbar region (principal); M51.36 Other intervertebral disc degeneration, lumbar region | CPT/HCPCS: 62323; J0702; Q9966 ==

== ENCOUNTER 2022-09-14 16:45 | Outpatient (RCR) | payer OTHER, SELFPAY | END 2023-01-14 23:59 | disposition home or self-care (01) | PROVIDERS: PCP Physician Assistant Medical; Visit Provider Family Medicine | DX: M51.36 Other intervertebral disc degeneration, lumbar region (principal); Z51.89 Encounter for other specified aftercare | CPT/HCPCS: 97032; 97110; 97140; 97161 ==

== ENCOUNTER 2022-12-18 07:07 | Outpatient (CLI) | payer OTHER, SELFPAY ==
--- NOTE | 2022-12-18 07:15 | MR_ITS ---
[address] [address] Phone:?[phone] Fax:?[phone] Referring Physician Information: Simon Benton M.D., PhD [address] [facility] [address] Phone:?[phone] Fax:?[phone] Patient:?Hawk Page D.O.B:?1975 Sex:?Male Phone:?[phone] [facility] MRN:?[id number] Exam Date:?12/18/2022 EXAM: MR LUMBAR SPINE WITHOUT CONTRAST 1.5T CLINICAL INFORMATION: 47 years old Male with spinal stenosis with neurogenic claudication. TECHNICAL INFORMATION: Multiplanar, multisequence imaging of the lumbar spine was performed. Contrast: None. Sedation: None. COMPARISON/CORRELATION: MRI lumbar spine 06/01/2022. INTERPRETATION: Numbering: Last fully formed disc space is designated L5-S1. Spinal Cord: The distal cord and conus demonstrates normal signal, terminating at L1. Osseous Structures: No acute fracture or osseous destructive lesion. No spondylolysis. Marrow signal is within normal limits. Soft tissues: No soft tissue abnormality. Other: Right renal cyst. L5-S1: Normal disc height. Mild annular bulge. Normal facet morphology. No stenosis or impingement. L4-5: Mild disc degeneration with a central to right central 5 mm AP disc herniation causing moderately severe central stenosis with descending neural impingement, increased in size with increased mass effect compared to prior exam. No significant facet arthropathy, although there is mild ligamentum flavum thickening on the left. Left foraminal small protrusion contacting/impinging the left L4 ganglion. Mild to moderate right foraminal stenosis. L3-4 through T12-L1: Normal disc and facet morphology without stenosis or impingement. CONCLUSION: Mild developmental canal narrowing and the following specific findings: 1. Increased size of the L4-5 disc herniation with increased, now moderately severe central stenosis with continued descending neural impingement. 2. L4-5 small left foraminal protrusion, new in the interval with left L4 ganglionic contact/impingement. 3. Unchanged L4-5 mild to moderate right foraminal stenosis. [place] Electronically signed on 12/19/2022 10:19:00 AM by Morenita Enriquez M.D.
== END 2022-12-18 07:08 | disposition home or self-care (01) ==
LOC: MRI 07:07
PROVIDERS: PCP Physician Assistant Medical; Visit Provider Orthopaedic Surgery Orthopaedic Surgery of the Spine
DX: M48.062 Spinal stenosis, lumbar region with neurogenic claudication (principal); M51.26 Other intervertebral disc displacement, lumbar region
CPT/HCPCS: 72148

== ENCOUNTER 2024-09-12 15:44 | Outpatient (CLI) | payer OTHER, SELFPAY ==
[2024-09-12 21:43] LABS: Eosinophils Absolute Auto 0.33 K/uL (0.00-0.50); Eosinophils Percent Auto 3.2 % (0.0-7.0); Hemoglobin* 15.6 gm/dL (13.5-17.5); Immature Granulocytes Abs Auto 0.02 K/uL (0.00-0.30); Immature Granulocytes Pct Auto 0.2 %; Lymphocytes Absolute Auto 3.62 K/uL (0.90-2.90); Lymphocytes Percent Auto 35.4 % (20-44); Mean Corpuscular HGB Conc 34 gm/dL (32-36); Mean Corpuscular Hemoglobin 32 pg (26-34); Mean Corpuscular Volume 96 fL (80-100); Monocytes Percent Auto 6.8 % (0.0-11.0); Neutrophils Absolute Auto 5.46 K/uL (1.7-7.0); Neutrophils Percent Auto 53.4 % (42.0-72.0); Platelet Count* 284 K/uL (140-440); RDW Coefficient of Variation % 12.7 % (11.5-15.5); Red Blood Count 4.81 m/uL (4.30-5.90); White Blood Count* 10.23 K/uL (4.50-11.00)
[2024-09-12 21:59] LABS: Slide Review Reflex No
== END 2024-09-12 15:45 | disposition home or self-care (01) ==
LOC: NPINS 15:45
PROVIDERS: PCP Physician Assistant Medical; Visit Provider Physician Assistant
DX: L56.4 Polymorphous light eruption (principal)
CPT/HCPCS: 85025

== ENCOUNTER 2024-12-25 17:10 | Outpatient (CLI) | payer OTHER, SELFPAY ==
--- NOTE | 2024-12-25 17:30 | CRLHL7_ITS ---
For Patients: As a result of the Century Cures Act, medical imaging exams and procedure reports are released immediately into your electronic medical record. You may view this report before your referring provider. If you have questions, please contact your health care provider. INDICATION: Trauma to the lower abdomen with significant bruising, pain, tenderness, edema, and patient palpated lump COMPARISON: None. TECHNIQUE: Focused sonographic evaluation of the reported region of clinical concern was performed at the right lower quadrant abdominal wall utilizing oliva-scale and color Doppler imaging techniques. FINDINGS: Focused sonographic evaluation of the right lower quadrant abdominal wall at the reported region of clinical concern does not demonstrate any definite focal abnormality. The septations lobules of subcutaneous fat in the abdominal wall might be slightly thickened which could represent edema or contusion, but no discrete lesion is identified. IMPRESSION: Focused sonographic evaluation of the right lower quadrant abdominal wall at the reported region of clinical concern does not demonstrate any definite focal abnormality. The septations lobules of subcutaneous fat in the abdominal wall might be slightly thickened which could represent edema or contusion, but no discrete lesion is identified. Dictated by Judson Munoz MD @ 12/25/2024 7:26:13 PM (Electronically Signed)
--- OUTSIDE RECORDS SUMMARY | 2024-12-25 19:43 | XMS_ITS | Continuity of Care Document ---
Author Name [facility] Organization [facility] Care Team Providers Care [employer] Worker Name Role Phone [facility] Unavailable Unavailable Problems Combined list of problems from Department of Defense and Veterans Affairs facilities. It does not include entries that were removed or entered in error. Problem Status Onset Date Problem Type Date of Resolution Comments Source Chronic back pain Active Condition Ju l 2013 Entered By: EDUAR ROMERO Comment: hx nl MRIsb 2017 Entered By: EDUAR ROMERO Comment: 2014 [place] MRI Does show some potentially surgical findings (c stenosis; etc) [facility] Closed fracture of clavicle Active Condition Jan 01, 2014 Entered By: EDUAR ROMERO Comment: left; no surg [facility] Closed fracture of clavicle (ICD-9-CM 810.00) Active Condition [facility] Depression * (ICD-9-CM 300.4/311.) Active Condition [facility] Dermatitis or Eczema * (ICD-9-CM 692.9) Active Condition [facility] Diarrhea Active Condition Oct 20 05 Entered By: BALBINA KELLY Comment: since cholecystectomy [facility] Diarrhea Active Condition Jan 01 14 Entered By: EDUAR ROMERO Comment[place] Entered By: EDUAR ROMERO Comment: dx of IBS [facility] Dyshydrosis * (ICD-9-CM 705.81) Active Condition [facility] Epilepsy ([facility] 86880335) Active Condition Aug 17, 2017 Entered By: EDUAR ROMERO Comment: dx -2017 [facility] Gastroesophageal Reflux Disease Active Condition Jan 01, 2014 Entered By: EDUAR ROMERO Comment: hx [place]Jul 2013 Entered By: EDUAR ROMERO Comment: Incision hernia repair afterward [facility] Gastroesophageal Reflux Disorder Active Condition Oct 20, 2004 Entered By: BALBINA KELLY Comment: s/p lap sabrina [facility] Headache Active Condition [facility] Health Examination of Defined Subpopulations (ICD-9-CM V70.5) Active Condition [facility] History of cholecystectomy Active Condition [place] [facility] HYPERLIPIDEMIA, MIXED Active Condition [facility] Idiopathic peripheral neuropathy Active Condition [facility] INSOMNIA, unspecified (ICD-9-CM 780.52) Active Condition [facility] Joint Pain-Knee Active Condition [facility] JOINT PAIN-L/LEG Active [place] [facility] JOINT PAIN-SHLDER [facility] Joint Pain-Shoulder Active Condition [facility] Knee pain Active Condition Jan 01 14 Entered By: EDUAR ROMERO Comment: hx rt knee arthroscopic surgery [facility] Lumbosacral radiculitis Active Condition May 20, 2015 Entered By: EDUAR ROMERO Comment: -15 FREEDOM DONEAug 2015 Entered By: EDUAR ROMERO Comment: See 2014 MRI spine here; NOT interested in surgAug 2015 Entered By: EDUAR ROMERO Comment: Pt saw father go through multiple back surg w/o help [facility] Migraine Active Condition Jan 01 14 Entered By: EDUAR ROMERO Comment: rx topomax [facility] Migraine, unspecified, without mention of Intractable Migraine without mention o Active Condition [facility] Multiple joint pain Active Condition May 29, 2019 Entered By: EDUAR ROMERO Comment: Lyme negative; SHARON neg; CCP neg;RF neg; ESR low [facility] Non-alcoholic fatty liver Active Condition Mar 29, 2019 Entered By: EDUAR ROMERO Comment: Seen on 2014 CT; 2019: neg HCV/HBVAug 2021 Entered By: EDUAR ROMERO Comment: 2019: Ferritin normal. SHARON normal [facility] Nonsustained ventricular tachycardia Active Condition Jun 08, 2019 Entered By: EDUAR ROMERO Comment: Event monitor 2019; Stress test and echo: nl [facility] Obstructive sleep apnea syndrome Active Condition Jan 02, 2015 Entered By: EDUAR ROMERO Comment: Doesn't use CPAP [facility] Outside Neuro= Dr Schmidt at [facility] ([place]) Active Condition [facility] PAIN, LOW BACK Active Condition [facility] Polyarthralgia (ICD-9-CM 719.49) Active Condition [facility] PROLONGED PTSD Active Condition [facility] Seizure Disorder (ICD-9-CM 780.39) Active Condition [facility] SENSORINEURAL HEARING LOSS OF COMBINED TYPES Active Condition [facility] SHOULDER IMPINGEMENT Active Condition [facility] Shoulder joint pain Active Condition Jan 01, 2014 Entered By: EDUAR ROMERO Comment: periodic pain; Hx of dislocation of shoulder [facility] SHx: Daughter with PTSD/Depression; in and out of [facility] Active Condition Aug 17, 2017 Entered By: EDUAR ROMERO Comment: 2-18: pt with outside family counselor [facility] SKIN LESION NOS Active Condition [facility] Sleep apnea (SNOMED CT 14665152) Active Condition [facility] SUBJECTIVE TINNITUS Active Condition [facility] Tobacco Use Disorder, Continuous (ICD-9-CM 305.1) Active Condition [facility] Tobacco use, continuous Active Condition Jan 16, 2022 Entered By: EDUAR ROMERO Comment: Quit in 2017 but has resumed [facility] Unspecified idiopathic peripheral neuropathy (ICD-9-CM 356.9) Active Condition [facility] Urolithiasis, NOS Active Condition Ju l 2014 Entered By: EDUAR ROMERO Comment: s/p basket stone removalSep 13, 2015 Entered By: EDUAR ROMERO Comment: 3-16: small remaining stone. urology d/c ptAug 2015 Entered By: EDUAR ROMERO Comment: D/c topomax b/c ===> Kidney stones [facility] QUIT SMOKING 2017 Inactive Condition 01/16/2022 [facility] Medications Combined list of outpatient medications from Department of Defense and [facility] facilities.Medications provided include 1) outpatient medications from the last 15 months, and 2) patient-reported medications. Medication Details Route Status Patient Instructions Prescription Expires Prescription Number Last Dispense Date Ordering Provider Order Date Order Qty Source CHOLECALCIF ADAN 1000 UNT TAB TAKE ONE TABLET ORALLY EVERY DAY ORAL ACTIVE RONEN MCKINNEY 2012 [facility] LAMOTRIGINE (LAMICTAL) TAB TAKE 200MG BY MOUTH TWICE A DAY ORAL ACTIVE EDUAR ROMERO 2017 [facility] NAPROXEN 500MG TAB TAKE ONE TABLET BY MOUTH EVERY DAY NEEDED ORAL ACTIVE EDUAR ROMERO Wade [address] [facility] OXYGEN,HOME MISCELLANEO US USE 11CM CPAP, NO 02 NOT APPLIC ABLE ACTIVE CLEMENTE BECKETT RGARET M 2012 [facility] Immunizations Combined list of available immunizations from the Department of [facility] and Veterans Affairs facilities. Immunization Series Date Given Administered By Site Reaction Lot Number CVX Code Drug Manager Financial Reporting Status Comments Source INFLUENZA, SEASONAL, INJECTABLE, PRESERVATIVE FREE [address] [facility] INFLUENZA, SEASONAL, INJECTABLE 2016 141 complet ed [place] INFLUENZA, SEASONAL, INJECTABLE [address] [facility] TETANUS-DIPHT -aPERT (HISTORICAL) 2011 115 complet ed [facility] INFLUENZA, LIVE, INTRANASAL 2011 111 complet ed [facility] TDAP [address] [facility] INFLUENZA, UNSPECIFIED FORMULATION 2009 88 complet ed per pt. [facility] NOVEL INFLUENZA-H1N 1-09, ALL FORMULATIONS 2008 128 complet ed [facility] INFLUENZA, UNSPECIFIED FORMULATION 2005 88 complet ed LOT # [id number] [facility] TD(ADULT) UNSPECIFIED FORMULATION 2002 139 complet ed [facility] Encounters Combined list of: 1) Encounters from Department of [facility] facilities going backup to the last 18 months, not all [place] inpatient encounters are included; 2) Encounters from the Department of [facility] facilities going backup to 280 months. Location Location Details Encounter Type Encounter Number Reason For Visit Attending Provider ADM Date DC Date Status Disposition Source [facility] Outpatient Encounter [id number] 05/26 [facility] Social History Combined list of available smoking, tobacco, and other social history from Department of [facility] and Veterans Affairs facilities. Social History Type Response Date Comment Sourc e Tobacco smoking status NHIS VA-TOBACCO USER EVERY DAY 01/16/2022 [facility] History of tobacco use VA-TOBACCO USE 30 YEARS OR MORE 01/16/2022 [facility] History of tobacco use VA-TOBACCO USE CO UNSEL NO 01/16/2020 [facility] History of tobacco use VA-TOBACCO DOESNT USE WI 30 MIN WAKEUP 03/13/2019 [facility] History of tobacco use CURRENT TOBACCO USER 08/17/2017 [facility] History of tobacco use CURRENT TOBACCO USER 02/17/2016 [facility] History of tobacco use CURRENT TOBACCO USER 02/07/2015 [facility] History of tobacco use CURRENT TOBACCO USER 01/01/2014 [facility] History of tobacco use FORMER TOBACCO USE <1Y 07/15/2012 [facility] History of tobacco use CURRENT TOBACCO USER 07/09/2011 [facility] History of tobacco use CURRENT TOBACCO USER 07/23/2010 [facility] History of tobacco use CURRENT TOBACCO USER 10/03/2009 [facility] History of tobacco use CURRENT TOBACCO USER 06/08/2008 [facility] History of tobacco use CURRENT TOBACCO USER 04/13/2007 [facility] History of tobacco use CURRENT SMOKELESS TOBACCO USER 10/20/2004 [facility] Plan of Care List of future care activities from Department of [facility] facilities. Additional future care activities may be listed in the Assessment and Plan section. Date/Time Care Activity Care Activity Detail Facili ty 01/01/2025 AMBULATORY - MEDICINE AMBULATORY - MEDICI [facility]
--- OUTSIDE RECORDS SUMMARY | 2024-12-26 02:23 | XMS_ITS | Clinical Summary ---
Author Organization [facility] Address [address] [place] [address] Phone Care Team Providers Care Epic Cadence Specialists Name Role Phone Keyanna Fu Unavailable Unavailable Conditions or Problems Problem Name Problem Code Onset Date Status Entry Date Provider Comment Standard Description Annotate Medication monitoring 444230169 (SNOMED CT) Active Danny Wilkes MD Medication monitoring Seizure disorder 169591104 (SNOMED CT) Active Danny Wilkes MD Seizure disorder Medications Medication Instructions Start Date Stop Date Generic Name [facility] Provider LAMOTRIGINE 150 MG TABS Take 1 tablet by mouth twice a day 12/23 lamotrigine [id number] Danny Wilkes MD HYDROXYCHLOROQUINE SULFATE 200 MG TABS hydroxychloroquine 04950150 605 Danny Wilkes MD LAMOTRIGINE 150 MG TABS 12/23 lamotrigine [id number] Danny Wilkes MD Medications Administered No information available. Allergies, Adverse Reactions, Alerts Allergy Name Reaction Description Start Date Severity Statu s Provider NO KNOWN DRUG ALLERGIES Mild Activ e Danny Wilkes MD Results Date Name Value Unit Range Flag Description Office Visit: Office Visit S Z w/unspecified convulsions no scans records a SMOK STATUS current every day smoker Tobacco smoking status MEDS REVIEW Done Documenta tion of current medications (procedure) Internal Other: Authorizatio n - OBS [email or web address] Yes Authoriza tion: Release of Information - Authorize [facility] - Payment and Healthcare Operations ROIAUTHOTHER Yes Authoriz ation: Release of Information - Authorize Others/Insurance - Payment and Healthcare Operations HIECONSENT Yes Consent To Release information to the Health Information Exchange (HIE) [email or web address] Yes Authorizat ion: Authorization for Davonte/LENNOX to leave messages, voicemail, send text messages, send emails AUTHRELHCARE Yes Authoriz ation: Release/Retrieval of Information to/from Healthcare Facilities, Pharmacy Benefit Payers and Providers AUTHPRIVPRAC Yes Authoriz ation: Notice of privacy practices AUTHBENEFIT Yes Authoriza tion: Assignment of Benefits and Payment Agreement Internal Other: Verbal Autho rization/Emergency Contact - OBS VERBAL_EMER Done Verbal authorization and emergency contact Lab Report: LAMOTRIGINE 6.6 mcg/mL and therapeutic LAMOTRIGINE 6.6 ug/mL 2.5-15.0 lamoTRIg ine [Mass/volume] in Serum or Plasma Plan of Care Type Date Detail Appointment 09:30 AM Carissa Hutchison PA-C, [address] [place] [address], [address], [place], [address], Pending order Follow up JOSSELIN Pending order Follow up JOSSELIN Pending order Lamotrigine (Ambrocio ictal) Pending order Patient Instruct ions Pending order Obtain outside r ecords Procedures Code Procedure Name Date Entry Date ORDERS Lamotrigine (Lamictal) 12/23 ORDERS Patient Instructions ORDERS Obtain outside records 12/23 [facility]-[id number] Documentation of current medicatio ns Vital Signs No information available. Immunizations No information available. Advance Directives No information available.
--- OUTSIDE RECORDS SUMMARY | 2024-12-26 02:27 | XMS_ITS | Clinical Summary ---
Author Organization [facility] Address [address] [place] [id number] Care Team Providers Care Order Make Up Clerk Name Role Phone [facility] [place] Primary Care Provider [phone] Allergies Active Allergy Reactions Criticality Noted Date Comments Sunlight Rash 01/27/2023 Medications oxyCODONE (ROXICODONE) 5 mg immediate release tabletIndications :Spinal stenosis, lumbar region, with neurogenic claudication Take 1 Tablet (5 mg) by mouth every 4 hours if needed for Pain. 15 Tablet 01/29/2023 10:47 AM CDT 3 Active lamoTRIgine (LAMICTAL) 150 mg tablet Take 150 mg by mouth two times daily. 3 Active cyclobenzaprine (FLEXERIL) 10 mg tablet Take 10 mg by mouth 3 times daily if needed for Muscle Spasm. Active cetirizine (ZYRTEC) 10 mg tablet Take 10 mg by mouth once daily. Active hydrOXYchloroQUIN E (PLAQUENIL) 200 mg tablet Take 200 mg by mouth two times daily. Active multivitamin capsule Take 1 Capsule by mouth once daily. Active Social History Tobacco Use Types Packs/Day Years Used Date Smoking Tobacco: Every Day Cigarettes Smokeless Tobacco: Never Alcohol Use Standard Drinks/Week Comments Yes 0 (1 standard drink = 0.6 oz pur e alcohol) occasional use Social Connections Answer Date Recorded Frequency of Communication with Friends and Fami ly Not on file 06/19/2022 Sex and Gender Information Value Date Recorded Sex Assigned at Not on file Legal Sex Male 6:19 PM CDT Gender Identity Not on file Sexual Orientation Not on file Obstetrics History Last Filed Vital Signs Vital Sign Reading Time Taken Comments Blood Pressure 118/77 01/29/2023 11:24 AM CDT Pulse 66 01/29/2023 11:24 AM CDT Temperature 36.8 C (98.2 F) 01/29/2023 10:00 AM CDT Respiratory Rate 12 01/29/2023 11:24 AM CDT Oxygen Saturation 96% 01/29/2023 11:24 AM CDT Inhaled Oxygen Concentration - - Weight 91 kg (200 lb 9.9 oz) 01/29/2023 6:06 AM CDT Height 177.8 cm (5' 10) 01/29/2023 6:06 AM CDT Body Mass Index 28.79 01/29/2023 6:06 AM CDT Plan of Treatment Health Maintenance Due Date Last Done Comments COVID-19 vaccine series (#1) 1982 Tdap 02/19/1988 Depression screening for age 12+ 1989 HIV for age 15-65 02/19/1992 Hepatitis C screening for age 18-79 1995 Hepatitis B series for 19+ ( 1 of 3 - 19+ 3-dose series) 02/19/1996 Pneumococcal series for age 6-49 (1 of 2 - PCV) 1995 Tetanus booster 1997 BMI (ht and wt on same day) for age 18+ 02/17/2018 0 02/17/2017 Colonoscopy through age 75 2022 Lipids for age 45-75 2022 Influenza Vaccine (Season Ended) 2025 Advance Directives * Full Code (Latest Code Status on File) Date Activated Date Inactivated Comments 01/29/2023 11:26 AM 01/29/2023 1:51 PM Question Answer Comments Code Status Discussion: Per Existing Order * Full Code Date Activated Date Inactivated Comments 01/29/2023 7:25 AM 01/29/2023 11:26 AM Question Answer Comments Code Status Discussion: Unable to Assess Preferences, Provider to review later Care Teams Order Make Up Clerk Relationship Specialty Start Date End Date [facility] [address] [place] [address] PCP - General 02/17/17
== END 2024-12-25 17:11 | disposition home or self-care (01) ==
LOC: US 17:11
PROVIDERS: PCP Physician Assistant Medical
DX: R10.9 Unspecified abdominal pain (principal); S39.91XA Unspecified injury of abdomen, initial encounter
CPT/HCPCS: 76705

== ENCOUNTER 2025-04-20 12:50 | Outpatient (CLI) | payer OTHER, SELFPAY | END 2025-04-20 12:51 | disposition home or self-care (01) | LOC: NPINS 12:51 | PROVIDERS: PCP Physician Assistant Medical; Visit Provider Physician Assistant | DX: Z51.81 Encounter for therapeutic drug level monitoring (principal); R56.9 Unspecified convulsions | CPT/HCPCS: 80175 ==